=== PATIENT | female | born 1995 | race Caucasian/White ===

== ENCOUNTER 2016-07-26 22:21 | Emergency (ER) | payer BC ==
[~2016-07-26] VITALS: Ht 162.6 cm; Wt 63.6 kg
[2016-07-26 22:27] VITALS: BP 129/81; PULSE 91; TEMP 98.8
[2016-07-26] MEDS ORDERED: PROZAC40 MG PO (22:34)
[2016-07-26] MEDS ORDERED: MYWAY (22:37)
[2016-07-26] MEDS ORDERED: DOXYCYCLINE 10100 MG PO (23:05)
== END 2016-07-26 23:22 | disposition home or self-care (01) ==
LOC: COL.ER 22:21
DX: L02.214 Cutaneous abscess of groin (principal); B95.61 Methicillin susceptible Staphylococcus aureus infection as the cause of diseases classified elsewhere